=== PATIENT | female | born 1965 | race Caucasian/White ===

== ENCOUNTER → 2016-05-07 | Outpatient (CLI) | payer BC | END | disposition home or self-care (01) | LOC: LAB 15:34 | PROVIDERS: ATTEND Internal Medicine Gastroenterology | DX: K58.2 Mixed irritable bowel syndrome (principal) | CPT/HCPCS: 82784; 83516; 86255 ==

== ENCOUNTER → 2016-05-25 | Outpatient (CLI) | payer BC ==
[~2016-05-25] MED LIST: ASPI81TA27 PO; ESCI10TA53 PO; GABA300C8 PO; MELO-85 PO; PRO20T OR
[2016-05-25 12:57] LABS: Basophils # (auto) 0 uL; Basophils % (auto) 0.7 % (0.0-2.0); Eosinophils # (auto) 0.1 uL; Eosinophils % (auto) 2.2 % (0.0-7.0); Hematocrit 44.4 % (36.0-46.0); Hemoglobin 14.1 g/dL (12.2-16.2); Lymphocytes # (auto) 1.6 uL; Lymphocytes % (auto) 28.5 % (10.0-50.0); Mean Corpuscular Hemoglobin 29.2 pg (28.0-32.0); Mean Corpuscular Hgb Conc. 31.7 g/dL (32.0-36.0); Mean Platelet Volume 10.6 fL (7.4-10.4); Monocytes # (auto) 0.7 uL; Monocytes % (auto) 12.1 % (0.0-12.0); Neutrophils # (auto) 3.1 uL; Neutrophils % (auto) 56.5 % (37.0-80.0); Platelet Count (auto) 286 10^3/uL (140-450); Red Cell Distribution Width 15.6 % (11.6-16.0); White Blood Cell 5.5 10^3/uL (4.4-10.8)
[2016-05-25 13:05] LABS: Partial Thromboplastin Time 23.8 sec (22.64-33.71); Prothrombin Time 10.3 sec (9.37-12.3)
== END | disposition home or self-care (01) ==
LOC: LAB 09:38
PROVIDERS: ATTEND Internal Medicine Gastroenterology
DX: Z01.812 Encounter for preprocedural laboratory examination (principal)
CPT/HCPCS: 36415; 85025; 85610; 85730

== ENCOUNTER 2016-05-27 09:30 | Day surgery (SDC) | payer BC ==
[~2016-05-27] VITALS: Ht 167.6 cm; Wt 65.8 kg
[2016-05-27] MEDS ORDERED: SODIUM CHLORIDE LOCK 10 ML ONE (10:26)
[2016-05-27] MEDS ORDERED: diphenhdrAMINE HCL 50 MG/1 ML VL ONE (10:26)
[2016-05-27] MEDS: MIDAZOLAM HCL 5 MG/ML-1ML VIAL ONE ×2 (10:37→10:43)
[2016-05-27] MEDS: fentaNYL CITRATE 100 MCG/2 ML VL ONE ×2 (10:37→10:43)
[2016-05-27 11:25] VITALS: BP 119/65
== END 2016-05-27 11:36 | disposition home or self-care (01) ==
LOC: GI 09:30
PROVIDERS: ATTEND Internal Medicine Gastroenterology
DX: Z12.11 Encounter for screening for malignant neoplasm of colon (principal); K64.8 Other hemorrhoids; N80.9 Endometriosis, unspecified; Z90.710 Acquired absence of both cervix and uterus
CPT/HCPCS: 45378; J1200; J2250; J3010

== ENCOUNTER → 2016-06-09 | Outpatient (CLI) | payer BC ==
[2016-06-09 13:25] LABS: Basophils # (auto) 0 uL; Basophils % (auto) 0.7 % (0.0-2.0); Eosinophils # (auto) 0.1 uL; Eosinophils % (auto) 1.5 % (0.0-7.0); Hematocrit 42.8 % (36.0-46.0); Hemoglobin 14.3 g/dL (12.2-16.2); Mean Corpuscular Hgb Conc. 33.5 g/dL (32.0-36.0); Mean Corpuscular Volume 89.5 fL (80.0-100.0); Mean Platelet Volume 9.4 fL (7.4-10.4); Monocytes # (auto) 0.6 uL; Monocytes % (auto) 11.1 % (0.0-12.0); Neutrophils # (auto) 2.9 uL; Neutrophils % (auto) 51.7 % (37.0-80.0); Platelet Count (auto) 299 10^3/uL (140-450); Red Cell Distribution Width 14.9 % (11.6-16.0); White Blood Cell 5.7 10^3/uL (4.4-10.8)
[2016-06-09 14:10] LABS: BUN/Creatinine Ratio 14.2; Calcium 9.7 mg/dL (8.5-10.1); Potassium 4.1 mmol/L (3.5-5.1)
== END | disposition home or self-care (01) ==
LOC: LAB 12:47
DX: Z00.00 Encounter for general adult medical examination without abnormal findings (principal)
CPT/HCPCS: 36415; 80048; 84702; 85025

== ENCOUNTER → 2016-11-22 | Outpatient (CLI) | payer BC ==
[~2016-11-22] MED LIST changes: +GABA-497 PO; -GABA300C8 PO
[2016-11-22 12:36] LABS: Basophils # (auto) 0 uL; Basophils % (auto) 0.7 % (0.0-2.0); CONDITION Y; Eosinophils # (auto) 0.2 uL; Eosinophils % (auto) 3.1 % (0.0-7.0); Hematocrit 43.4 % (36.0-46.0); Hemoglobin 14.9 g/dL (12.2-16.2); Lymphocytes # (auto) 1.2 uL; Lymphocytes % (auto) 23.2 % (10.0-50.0); Mean Corpuscular Hemoglobin 31.2 pg (28.0-32.0); Mean Corpuscular Hgb Conc. 34.3 g/dL (32.0-36.0); Mean Corpuscular Volume 90.9 fL (80.0-100.0); Mean Platelet Volume 9.4 fL (7.4-10.4); Monocytes # (auto) 0.5 uL; Neutrophils # (auto) 3.1 uL; Platelet Count (auto) 329 10^3/uL (140-450); Red Cell Distribution Width 14.8 % (11.6-16.0)
[2016-11-22 13:07] LABS: Albumin 4.3 g/dL (3.4-5.0); BUN/Creatinine Ratio 18.3; Bilirubin, Total 0.4 mg/dL (0.2-1.0); Calcium 9.1 mg/dL (8.5-10.1); Potassium 4.4 mmol/L (3.5-5.1); Total Protein 8.4 g/dL (6.4-8.2)
== END | disposition home or self-care (01) ==
LOC: LAB 12:08
PROVIDERS: ATTEND Internal Medicine
DX: Z00.00 Encounter for general adult medical examination without abnormal findings (principal); E78.5 Hyperlipidemia, unspecified; Z12.11 Encounter for screening for malignant neoplasm of colon
CPT/HCPCS: 36415; 80053; 80061; 82306; 84443; 85025

== ENCOUNTER → 2016-12-08 | Outpatient (CLI) | payer BC | END | disposition home or self-care (01) | LOC: LAB 10:19 | PROVIDERS: ATTEND Internal Medicine | DX: Z12.6 Encounter for screening for malignant neoplasm of bladder (principal); E78.5 Hyperlipidemia, unspecified | CPT/HCPCS: 82270 ==

== ENCOUNTER 2016-12-23 19:21 | Emergency (ER) | payer BC ==
[~2016-12-23] VITALS: Ht 167.6 cm; Wt 66.7 kg
[2016-12-23] MEDS ORDERED: cloNIDine HCL 0.1 MG TAB PO ONE (19:45)
[2016-12-23] MEDS ORDERED: SODIUM CHLORIDE 0.9% 1,000 ML IV ONE (19:45)
[2016-12-23] MEDS ORDERED: ONDANSETRON HCL 4 MG/2 ML VIAL IV ONE ×2 (19:45→23:15)
[2016-12-23 20:11] LABS: Basophils # (auto) 0.1 uL; Basophils % (auto) 1.2 % (0.0-2.0); Eosinophils # (auto) 0 uL; Eosinophils % (auto) 0.5 % (0.0-7.0); Hemoglobin 14.3 g/dL (12.2-16.2); Lymphocytes # (auto) 1.5 uL; Lymphocytes % (auto) 19.6 % (10.0-50.0); Mean Corpuscular Hemoglobin 31.1 pg (28.0-32.0); Mean Corpuscular Volume 91.5 fL (80.0-100.0); Mean Platelet Volume 8.8 fL (7.4-10.4); Monocytes # (auto) 0.6 uL; Monocytes % (auto) 7.6 % (0.0-12.0); Neutrophils # (auto) 5.3 uL; Neutrophils % (auto) 71.1 % (37.0-80.0); Platelet Count (auto) 278 10^3/uL (140-450); Red Cell Distribution Width 15.2 % (11.6-16.0); White Blood Cell 7.5 10^3/uL (4.4-10.8)
[2016-12-23 20:20] LABS: Albumin 4.3 g/dL (3.4-5.0); BUN/Creatinine Ratio 11.9; Potassium 3.7 mmol/L (3.5-5.1)
[2016-12-23 20:22] LABS: Bilirubin, Total 0.4 mg/dL (0.2-1.0); Total Protein 7.7 g/dL (6.4-8.2)
[2016-12-23] MEDS ORDERED: MORPHINE SULFATE 4 MG/ML SYRG IV ONE (20:30)
[2016-12-23] MEDS ORDERED: HYDROmorphone HCL 2 MG/ML VL IV ONE (21:15)
[2016-12-23] MEDS ORDERED: PROMETHAZINE HCL 25 MG/ML 1ML IV ONE (21:15)
[2016-12-23 21:21] LABS: B-Type Natriuretic Peptide 11.11 pg/mL (0-100)
[2016-12-23 21:30] LABS: Temperature: 22.3 C (20.0-25.0)
[2016-12-23] MEDS ORDERED: FAMOTIDINE (10MG/ML) 2ML VL IV ONE (23:15)
[2016-12-23] MEDS ORDERED: LORazepam 2MG/ML-1ML VIAL IV ONE (23:15)
[2016-12-23] MEDS ORDERED: LORazepam 0.5 MG TAB PO ONE (23:15)
[2016-12-24 00:57] VITALS: BP 151/95
== END 2016-12-24 01:19 | disposition home or self-care (01) ==
LOC: ER 19:21
DX: R51 Headache (principal); R11.2 Nausea with vomiting, unspecified; J02.9 Acute pharyngitis, unspecified; I10 Essential (primary) hypertension; R42 Dizziness and giddiness
CPT/HCPCS: 36415; 70450; 80053; 80320; 83735; 83880; 84484; 85025; 93005; 94761; 96361; 96374; 96375; 96376; 99285; J1170; J2060; J2270; J2405; J2550

== ENCOUNTER 2016-12-25 10:02 | Emergency (ER) | payer BC ==
[~2016-12-25] VITALS: Ht 167.6 cm; Wt 66.7 kg
[2016-12-25] MEDS ORDERED: LORazepam 2MG/ML-1ML VIAL ONE (10:17)
[2016-12-25] MEDS ORDERED: LABETALOL HCL 5 MG/ML 4ML SYRINGE IV ONE (10:17)
[2016-12-25] MEDS ORDERED: LABETALOL HCL 5 MG/ML ML 20ML VIAL IV ONE (10:30)
[2016-12-25] MEDS ORDERED: LORazepam 2MG/ML-1ML VIAL IV ONE ×2 (10:30→12:00)
[2016-12-25] MEDS ORDERED: PROMETHAZINE HCL 25 MG/ML 1ML IV ONE (10:45)
[2016-12-25] MEDS ORDERED: SODIUM CHLORIDE 0.9% 1,000 ML IV ONE (11:04)
[2016-12-25] MEDS ORDERED: HYDROmorphone HCL 2 MG/ML VL IV ONE (11:15)
[2016-12-25 11:22] LABS: Basophils # (auto) 0.1 uL; Basophils % (auto) 0.7 % (0.0-2.0); Eosinophils # (auto) 0.1 uL; Eosinophils % (auto) 1.9 % (0.0-7.0); Hematocrit 43.7 % (36.0-46.0); Hemoglobin 14.5 g/dL (12.2-16.2); Lymphocytes # (auto) 1.5 uL; Lymphocytes % (auto) 20.2 % (10.0-50.0); Mean Corpuscular Hemoglobin 30.5 pg (28.0-32.0); Mean Corpuscular Hgb Conc. 33.2 g/dL (32.0-36.0); Mean Corpuscular Volume 92.1 fL (80.0-100.0); Mean Platelet Volume 9.1 fL (7.4-10.4); Monocytes # (auto) 0.8 uL; Monocytes % (auto) 11.2 % (0.0-12.0); Neutrophils # (auto) 4.8 uL; Nucleated Red Blood Cells % 0.1 %; Platelet Count (auto) 270 10^3/uL (140-450); Red Cell Distribution Width 15.4 % (11.6-16.0); White Blood Cell 7.3 10^3/uL (4.4-10.8)
[2016-12-25 11:35] LABS: Alkaline Phosphatase 49 U/L (45-117); Anion Gap 8 (5-15); Aspartate Aminotransferase 43 U/L (15-37); BUN/Creatinine Ratio 16.5; Bilirubin, Total 0.4 mg/dL (0.2-1.0); Blood Urea Nitrogen 15 mg/dL (7-18); Calcium 8.8 mg/dL (8.5-10.1); Carbon Dioxide 28 mmol/L (21-32); Chloride 99 mmol/L (98-107); GFR African American 84 mL/min; GFR Non-African American 69 mL/min; Glucose 91 mg/dL (74-106); Potassium 4.4 mmol/L (3.5-5.1); Sodium 135 mmol/L (136-145)
[2016-12-25] MEDS ORDERED: hydrALAZINE HCL 20 MG/ML VL IV ONE (11:45)
[2016-12-25] MEDS ORDERED: DIAZEPAM 5 MG/ML 2ML SYRG IV ONE (11:45)
[2016-12-25 12:30] VITALS: BP 142/95
[2016-12-25] MEDS ORDERED: IBUPROFEN 800 MG TAB PO ONE ×2 (12:56→13:00)
== END 2016-12-25 13:08 | disposition home or self-care (01) ==
LOC: ER 10:02
DX: I10 Essential (primary) hypertension (principal); E78.5 Hyperlipidemia, unspecified; Z88.6 Allergy status to analgesic agent; Z88.8 Allergy status to other drugs, medicaments and biological substances
CPT/HCPCS: 36415; 70450; 80053; 84484; 85025; 94761; 96374; 96375; 96376; 99291; J0360; J1170; J2060; J2550; J3490

== ENCOUNTER 2016-12-27 11:34 | Emergency (ER) | payer BC ==
[~2016-12-27] VITALS: Ht 167.6 cm; Wt 66.7 kg
[2016-12-27] MEDS ORDERED: diphenhdrAMINE HCL 25 MG CAP PO ONE (13:15)
[2016-12-27] MEDS ORDERED: KETOROLAC TROMETH 60MG/2ML VIAL IM ONE (13:15)
[2016-12-27] MEDS ORDERED: PROMETHAZINE HCL 25 MG/ML 1ML IM ONE (13:15)
[2016-12-27 14:51] VITALS: BP 137/88
== END 2016-12-27 14:59 | disposition home or self-care (01) ==
LOC: ER 11:34
DX: G43.909 Migraine, unspecified, not intractable, without status migrainosus (principal); I10 Essential (primary) hypertension; E78.5 Hyperlipidemia, unspecified; G62.9 Polyneuropathy, unspecified; F17.210 Nicotine dependence, cigarettes, uncomplicated; Z88.8 Allergy status to other drugs, medicaments and biological substances; Z88.6 Allergy status to analgesic agent; Z79.899 Other long term (current) drug therapy
CPT/HCPCS: 96372; 99284; J1885; J2550

== ENCOUNTER → 2017-12-20 | Outpatient (CLI) | payer BC ==
[~2017-12-20] MED LIST changes: -GABA-497 PO; +GABA300C10 PO; -MELO-85 PO; +MELO1TAB73 PO
[2017-12-20 09:37] LABS: Basophils # (auto) 0 uL; Basophils % (auto) 0.7 % (0.0-2.0); Eosinophils # (auto) 0.1 uL; Lymphocytes # (auto) 1.4 uL; Lymphocytes % (auto) 22.9 % (10.0-50.0); Mean Corpuscular Hemoglobin 30.9 pg (28.0-32.0); Mean Corpuscular Hgb Conc. 33.5 g/dL (32.0-36.0); Mean Corpuscular Volume 92.3 fL (80.0-100.0); Monocytes # (auto) 0.6 uL; Monocytes % (auto) 10.2 % (0.0-12.0); Neutrophils # (auto) 3.9 uL; Neutrophils % (auto) 64.2 % (37.0-80.0); Platelet Count (auto) 269 10^3/uL (140-450); Red Blood Cells 4.55 10^6/uL (4.0-5.20); Red Cell Distribution Width 14.2 % (11.8-14.3)
[2017-12-20 10:49] LABS: Albumin 4.4 g/dL (3.4-5.0); BUN/Creatinine Ratio 20.8; Bilirubin, Total 0.3 mg/dL (0.2-1.0); Calcium 9.2 mg/dL (8.5-10.1); Potassium 4.6 mmol/L (3.5-5.1)
== END | disposition home or self-care (01) ==
LOC: LAB 09:23
PROVIDERS: ATTEND Internal Medicine
DX: Z12.11 Encounter for screening for malignant neoplasm of colon (principal); E78.5 Hyperlipidemia, unspecified; I10 Essential (primary) hypertension; Z90.710 Acquired absence of both cervix and uterus; Z79.82 Long term (current) use of aspirin
CPT/HCPCS: 36415; 80053; 80061; 82306; 84443; 85025

== ENCOUNTER 2018-03-12 15:28 | Emergency (ER) | payer BC ==
[2018-03-12 17:04] VITALS: BP 94/62
== END 2018-03-12 17:06 | disposition home or self-care (01) ==
LOC: ER 15:28
DX: S39.012A Strain of muscle, fascia and tendon of lower back, initial encounter (principal); E78.5 Hyperlipidemia, unspecified; I10 Essential (primary) hypertension; F17.210 Nicotine dependence, cigarettes, uncomplicated; Z88.8 Allergy status to other drugs, medicaments and biological substances; X58.XXXA Exposure to other specified factors, initial encounter; Y93.89 Activity, other specified; Y99.8 Other external cause status; Y92.89 Other specified places as the place of occurrence of the external cause
CPT/HCPCS: 72100

== ENCOUNTER 2018-05-31 08:01 | Emergency (ER) | payer BC ==
[~2018-05-31] VITALS: Ht 167.6 cm; Wt 67.6 kg
[2018-05-31] MEDS ORDERED: KETOROLAC TROMETH 60MG/2ML VIAL IM ONE (09:45)
[2018-05-31] MEDS ORDERED: methylPREDNISolone SOD SUCC 125 MG/2 ML VL IM ONE (09:45)
[2018-05-31 16:23] VITALS: BP 122/78
== END 2018-05-31 16:38 | disposition home or self-care (01) ==
LOC: ER 08:02
DX: M77.9 Enthesopathy, unspecified (principal); M51.17 Intervertebral disc disorders with radiculopathy, lumbosacral region; E78.5 Hyperlipidemia, unspecified; I10 Essential (primary) hypertension; M79.652 Pain in left thigh; F17.210 Nicotine dependence, cigarettes, uncomplicated; Z88.6 Allergy status to analgesic agent; Z88.8 Allergy status to other drugs, medicaments and biological substances
CPT/HCPCS: 73110; 93971; 96372; 99284; J1885; J2930

== ENCOUNTER 2018-06-19 11:14 | Emergency (ER) | payer BC ==
[~2018-06-19] VITALS: Ht 167.6 cm; Wt 67.1 kg
[2018-06-19 13:22] VITALS: BP 127/74
[2018-06-19] MEDS ORDERED: DEXAMETHASONE SOD PHOS 10MG/1ML VIAL INJ IM ONE (13:30)
[2018-06-19] MEDS ORDERED: KETOROLAC TROMETH 60MG/2ML VIAL IM ONE (13:30)
== END 2018-06-19 13:26 | disposition home or self-care (01) ==
LOC: ER 11:15
DX: M48.02 Spinal stenosis, cervical region (principal); E78.5 Hyperlipidemia, unspecified; I10 Essential (primary) hypertension; F17.210 Nicotine dependence, cigarettes, uncomplicated; Z88.6 Allergy status to analgesic agent; Z88.8 Allergy status to other drugs, medicaments and biological substances; Z79.82 Long term (current) use of aspirin; Z79.899 Other long term (current) drug therapy
CPT/HCPCS: 72125; 96372; 99284; J1100; J1885

== ENCOUNTER 2018-07-10 13:44 | Emergency (ER) | payer BC ==
[~2018-07-10] VITALS: Ht 167.6 cm; Wt 64.4 kg
[2018-07-10 13:59] VITALS: BP 165/92
[2018-07-10] MEDS ORDERED: KETOROLAC TROMETH 60MG/2ML VIAL IM ONE (15:00)
== END 2018-07-10 15:36 | disposition home or self-care (01) ==
LOC: ER 13:45
DX: S92.341A Displaced fracture of fourth metatarsal bone, right foot, initial encounter for closed fracture (principal); I10 Essential (primary) hypertension; E78.5 Hyperlipidemia, unspecified; F17.210 Nicotine dependence, cigarettes, uncomplicated; Z88.6 Allergy status to analgesic agent; Z88.8 Allergy status to other drugs, medicaments and biological substances; Z90.710 Acquired absence of both cervix and uterus; Z88.1 Allergy status to other antibiotic agents
CPT/HCPCS: 73630; 96372; 99283; A6257; J1885; L3260

== ENCOUNTER 2018-07-26 09:26 | Day surgery (SDC) | payer BC ==
[~2018-07-26] VITALS: Ht 167.6 cm; Wt 64.4 kg
[2018-07-26] MEDS ORDERED: ceFAZolin 1GM/50ML 50 ML IV ONE (09:58)
[2018-07-26 10:37] LABS: Basophils # (auto) 0.1 uL; Eosinophils # (auto) 0.1 uL; Hematocrit 41.4 % (36.0-46.0); Hemoglobin 13.8 g/dL (12.2-16.2); Lymphocytes # (auto) 1.2 uL; Lymphocytes % (auto) 22.6 % (10.0-50.0); Mean Corpuscular Hgb Conc. 33.3 g/dL (32.0-36.0); Mean Corpuscular Volume 93.1 fL (80.0-100.0); Monocytes # (auto) 0.6 uL; Monocytes % (auto) 11.7 % (0.0-12.0); Neutrophils # (auto) 3.3 uL; Neutrophils % (auto) 62.7 % (37.0-80.0); Nucleated Red Blood Cells % 0.1 %; Platelet Count (auto) 348 10^3/uL (140-450); Red Blood Cells 4.44 10^6/uL (4.0-5.20); Red Cell Distribution Width 14.5 % (11.8-14.3); White Blood Cell 5.3 10^3/uL (4.4-10.8)
[2018-07-26 10:48] LABS: BUN/Creatinine Ratio 20.2; Calcium 9.1 mg/dL (8.5-10.1); Potassium 4.5 mmol/L (3.5-5.1)
[2018-07-26] MEDS ORDERED: fentaNYL CITRATE 100 MCG/2 ML VL ONE (11:11)
[2018-07-26] MEDS ORDERED: MIDAZOLAM HCL 1MG/1ML-2 ML VIAL ONE (11:11)
[2018-07-26] MEDS ORDERED: MEPERIDINE HCL (50 MG/ML) 1 ML VIAL ONE (11:11)
[2018-07-26 11:23] LABS: INR 0.94 (0.9-1.15); Partial Thromboplastin Time 23.4 sec (23.78-33.04); Prothrombin Time 10.1 sec (9.27-12.13)
[2018-07-26] MEDS ORDERED: BUPIVACAINE 0.75% INJ 10ML MPV SDV IJ ONE (12:07)
[2018-07-26] MEDS ORDERED: MIDAZOLAM HCL 1MG/1ML-2 ML VIAL IV PRN ×2 (12:45→13:45)
[2018-07-26] MEDS ORDERED: KETOROLAC TROMETH 30 MG/ML 1ML VIAL IV ONE ×2 (12:45→13:45)
[2018-07-26] MEDS ORDERED: HYDROmorphone HCL 2 MG/ML VL IV PRN ×2 (12:45→13:45)
[2018-07-26] MEDS ORDERED: ONDANSETRON HCL 4 MG/2 ML VIAL IV ONE ×2 (12:45→13:45)
[2018-07-26] MEDS ORDERED: LABETALOL HCL 5 MG/ML 4ML SYRINGE IV PRN ×2 (12:45→13:45)
[2018-07-26] MEDS ORDERED: ePHEDrine SULFATE 50 MG/ML AMP IV PRN ×2 (12:45→13:45)
[2018-07-26] MEDS ORDERED: PROPOFOL 10 MG/ML 20 ML IV ONE (12:50)
[2018-07-26] MEDS ORDERED: MORPHINE SULFATE 4 MG/ML SYR/VIAL IV PRN (13:45)
[2018-07-26] MEDS ORDERED: hydrALAZINE HCL 20 MG/ML VL IV PRN (13:45)
[2018-07-26] MEDS ORDERED: MORPHINE SULFATE 4 MG/ML SYR/VIAL IV ONE ×2 (14:00)
[2018-07-26 14:32] VITALS: BP 149/71
== END 2018-07-26 14:37 | disposition home or self-care (01) ==
LOC: SUR 09:26
PROVIDERS: ATTEND Podiatrist Foot & Ankle Surgery
DX: S92.341A Displaced fracture of fourth metatarsal bone, right foot, initial encounter for closed fracture (principal); I10 Essential (primary) hypertension; E78.00 Pure hypercholesterolemia, unspecified; I34.1 Nonrheumatic mitral (valve) prolapse; M19.90 Unspecified osteoarthritis, unspecified site; Z79.899 Other long term (current) drug therapy; Z90.710 Acquired absence of both cervix and uterus; Z88.8 Allergy status to other drugs, medicaments and biological substances; Z90.721 Acquired absence of ovaries, unilateral; X58.XXXA Exposure to other specified factors, initial encounter; Y93.89 Activity, other specified; Y92.89 Other specified places as the place of occurrence of the external cause; Y99.8 Other external cause status
CPT/HCPCS: 28485; 36415; 71045; 73620; 80048; 85025; 85610; 85730; C1713; C1776; J0690; J2175; J2250; J2704; J3010; J3490; L3260

== ENCOUNTER 2019-12-10 12:49 | Emergency (ER) | payer BC, OTHER ==
[~2019-12-10] VITALS: Ht 167.6 cm; Wt 68.9 kg
[~2019-12-10 12:49] MED LIST changes: +ASPI-543 PO; -ASPI81TA27 PO
[2019-12-10] MEDS ORDERED: ONDANSETRON ODT 4 MG TAB PO ONE (13:00)
[2019-12-10 13:09] VITALS: BP 145/95
[2019-12-10] MEDS ORDERED: HYDROmorphone HCL 2 MG/ML VL IM ONE (13:45)
[2019-12-10] MEDS ORDERED: ONDANSETRON HCL 4 MG/2 ML VIAL IM ONE (13:45)
== END 2019-12-10 15:15 | disposition home or self-care (01) ==
LOC: ER 12:49 → EEVIPCON 12:49 → ER 15:15
DX: G43.909 Migraine, unspecified, not intractable, without status migrainosus (principal); F41.9 Anxiety disorder, unspecified; E78.5 Hyperlipidemia, unspecified; I10 Essential (primary) hypertension; F17.210 Nicotine dependence, cigarettes, uncomplicated; Z79.82 Long term (current) use of aspirin; Z79.899 Other long term (current) drug therapy; Z88.6 Allergy status to analgesic agent; Z88.8 Allergy status to other drugs, medicaments and biological substances
CPT/HCPCS: 70450; 96372; 99284; J1170; J2405; Q0162

== ENCOUNTER → 2019-12-12 | Outpatient (CLI) | payer OTHER | END | disposition home or self-care (01) | LOC: LAB 13:47 | PROVIDERS: ATTEND Nurse Practitioner Family | DX: Z20.828 Contact with and (suspected) exposure to other viral communicable diseases (principal) | CPT/HCPCS: C9803; U0003 ==

== ENCOUNTER 2019-12-13 20:57 | Emergency (ER) | payer BC, OTHER ==
[~2019-12-13] VITALS: Ht 167.6 cm; Wt 68.0 kg
[2019-12-13] MEDS ORDERED: ONDANSETRON HCL 4 MG/2 ML VIAL ONE (21:39)
[2019-12-13] MEDS ORDERED: MORPHINE SULFATE 4 MG/ML SYR/VIAL ONE (21:39)
[2019-12-13] MEDS ORDERED: ONDANSETRON HCL 4 MG/2 ML VIAL IV ONE (21:45)
[2019-12-13] MEDS ORDERED: MORPHINE SULFATE 4 MG/ML SYR/VIAL IV ONE (21:45)
[2019-12-13] MEDS ORDERED: SODIUM CHLORIDE 0.9% 1,000 ML IV ONE (21:45)
[2019-12-13] MEDS ORDERED: HYDROmorphone HCL 2 MG/ML VL ONE (22:16)
[2019-12-14] MEDS ORDERED: fentaNYL CITRATE 100 MCG/2 ML VL IV ONE (00:30)
[2019-12-14] MEDS ORDERED: MIDAZOLAM HCL 5 MG/ML-1ML VIAL IV ONE (00:30)
[2019-12-14 01:00] VITALS: BP 110/67
[2019-12-14] MEDS ORDERED: FLUMAZENIL 0.1 MG/ML INJ 10ML MDV IV ONE (02:10)
[2019-12-25] MEDS ORDERED: IRBE150T26 PO (13:36)
[2019-12-25] MEDS ORDERED: HYDR25TA4 PO (13:36)
[2019-12-25] MEDS ORDERED: ROPI0.254 PO (13:36)
[2019-12-25] MEDS ORDERED: PROP80CA40 PO (13:36)
[2019-12-25] MEDS ORDERED: ATOR20TA50 PO (13:36)
== END 2019-12-14 03:38 | disposition home or self-care (01) ==
LOC: ER 20:57 → EEVIPCON 20:57 → ER 12-14 03:38
DX: S52.501A Unspecified fracture of the lower end of right radius, initial encounter for closed fracture (principal); E78.5 Hyperlipidemia, unspecified; I10 Essential (primary) hypertension; Z88.6 Allergy status to analgesic agent; Z88.8 Allergy status to other drugs, medicaments and biological substances; W18.30XA Fall on same level, unspecified, initial encounter; Y93.89 Activity, other specified; Y92.89 Other specified places as the place of occurrence of the external cause; Y99.8 Other external cause status
CPT/HCPCS: 25605; 73090; 73110; 96361; 96374; 96375; 99152; 99153; 99285; J1170; J2250; J2270; J2405; J3010; J7030

== ENCOUNTER 2019-12-28 06:12 | Day surgery (SDC) | payer BC ==
[2019-12-25 12:14] LABS: Basophils # (auto) 0.1 10 ^3/uL (0-0.2); Basophils % (auto) 1.2 % (0.0-2.0); Eosinophils # (auto) 0.1 10 ^3/uL (0-0.8); Eosinophils % (auto) 1.3 % (0.0-7.0); Hematocrit 36.8 % (36.0-46.0); Hemoglobin 12.4 g/dL (12.2-16.2); Lymphocytes # (auto) 0.8 10 ^3/uL (0.4-5.4); Lymphocytes % (auto) 15.7 % (10.0-50.0); Mean Corpuscular Hemoglobin 31.8 pg (28.0-32.0); Mean Corpuscular Hgb Conc. 33.7 g/dL (32.0-36.0); Mean Corpuscular Volume 94.5 fL (80.0-100.0); Monocytes # (auto) 0.7 10 ^3/uL (0-1.3); Monocytes % (auto) 14.5 % (0.0-12.0); Neutrophils # (auto) 3.2 10 ^3/uL (1.6-8.6); Neutrophils % (auto) 67.3 % (37.0-80.0); Platelet Count (auto) 281 10^3/uL (140-450); Red Blood Cells 3.89 10^6/uL (4.0-5.20); Red Cell Distribution Width 14.3 % (11.8-14.3); White Blood Cell 4.8 10^3/uL (4.4-10.8)
[2019-12-25 12:18] LABS: Urine Bacteria NONE SEEN /hpf (None Seen); Urine Blood Negative /uL (Negative); Urine Hyaline Cast FEW /lpf (0 - 2); Urine Mucus FEW (None Seen); Urine Specific Gravity 1.016 (1.001-1.035); Urine WBC 1 /hpf (0 - 5)
[2019-12-25 12:32] LABS: INR 0.96 (0.9-1.15); Partial Thromboplastin Time 24.4 sec (23.0-31.2)
[2019-12-25 12:33] LABS: Albumin 3.9 g/dL (3.4-5.0); Calcium 9.2 mg/dL (8.5-10.1); Potassium 3.3 mmol/L (3.5-5.1)
[2019-12-25 12:36] LABS: BUN/Creatinine Ratio 7.9; Bilirubin, Total 0.5 mg/dL (0.2-1.0); Total Protein 7.5 g/dL (6.4-8.2)
[~2019-12-28] VITALS: Ht 167.6 cm; Wt 70.3 kg
[~2019-12-28 06:12] MED LIST changes: -ASPI-543 PO; +ATOR20TA50 PO; -ESCI10TA53 PO; -GABA300C10 PO; +HYDR25TA4 PO; +IRBE150T26 PO; -PRO20T OR; +PROP80CA40 PO; +ROPI0.254 PO
[2019-12-28] MEDS ORDERED: ceFAZolin 1GM/50ML 50 ML IV ONE (06:39)
[2019-12-28] MEDS ORDERED: LIDOCAINE 1% (LOCAL ANESTH.) PF 5ml SDV ONE (06:43)
[2019-12-28] MEDS ORDERED: SUCCINYLCHOLINE CHLORIDE 20 MG/ML 10ML VIAL IV ONE (06:44)
[2019-12-28] MEDS ORDERED: BUPIVACAINE W/ EPINEPH 0.25% INJ 50ML MDV ONE (06:48)
[2019-12-28] MEDS ORDERED: LIDOCAINE W/ EPINEPHRINE 1% 20ML VIAL ONE (06:48)
[2019-12-28] MEDS ORDERED: LIDOCAINE 1% HCL (LOCAL ANESTH.) INJ 20ML MDV ONE (06:48)
[2019-12-28] MEDS ORDERED: BUPIVACAINE 0.25% INJ 50ML VIAL ONE (06:49)
[2019-12-28] MEDS ORDERED: MIDAZOLAM HCL 1MG/1ML-2 ML VIAL ONE (06:59)
[2019-12-28] MEDS ORDERED: NALOXONE HCL 0.4 MG/ML VIAL IV PRN (07:00)
[2019-12-28] MEDS ORDERED: ONDANSETRON HCL 4 MG/2 ML VIAL IV PRN (07:00)
[2019-12-28] MEDS ORDERED: HYDROmorphone HCL 2 MG/ML VL IV PRN ×2 (07:00)
[2019-12-28] MEDS ORDERED: PROPOFOL 10 MG/ML 20 ML IV ONE (07:02)
[2019-12-28] MEDS ORDERED: ROCURONIUM 10MG/ML 10ML VIAL IV ONE (07:02)
[2019-12-28] MEDS ORDERED: METOCLOPRAMIDE HCL 5MG/ml INJ 2ml VIAL ONE (07:03)
[2019-12-28] MEDS ORDERED: fentaNYL CITRATE 100 MCG/2 ML VL ONE (07:13)
[2019-12-28 09:10] VITALS: BP 161/97
== END 2019-12-28 09:40 | disposition home or self-care (01) ==
LOC: SUR 06:12
PROVIDERS: ATTEND Orthopaedic Surgery Adult Reconstructive Orthopaedic Surgery
DX: S52.591A Other fractures of lower end of right radius, initial encounter for closed fracture (principal); X58.XXXA Exposure to other specified factors, initial encounter; Y93.89 Activity, other specified; Y92.89 Other specified places as the place of occurrence of the external cause; Y99.8 Other external cause status; I10 Essential (primary) hypertension; M19.90 Unspecified osteoarthritis, unspecified site; F41.9 Anxiety disorder, unspecified; Z90.710 Acquired absence of both cervix and uterus; Z88.6 Allergy status to analgesic agent; Z88.8 Allergy status to other drugs, medicaments and biological substances; Z90.721 Acquired absence of ovaries, unilateral; Z20.828 Contact with and (suspected) exposure to other viral communicable diseases
CPT/HCPCS: 25608; 36415; 73100; 80053; 81001; 85025; 85610; 85730; 87426; C1713; J0330; J0690; J1170; J2250; J2405; J2704; J2765; J3010; J3490; 76001; J2001

== ENCOUNTER 2020-01-01 06:22 | Emergency (ER) | payer BC ==
[~2020-01-01] VITALS: Ht 167.6 cm; Wt 70.3 kg
[2020-01-01] MEDS ORDERED: HYDROmorphone HCL 2 MG/ML VL IV ONE (07:45)
[2020-01-01] MEDS ORDERED: ONDANSETRON HCL 4 MG/2 ML VIAL IV ONE (07:45)
[2020-01-01] MEDS ORDERED: LOSARTAN POTASSIUM 50 MG TAB PO ONE (08:45)
[2020-01-01] MEDS ORDERED: PROPRANOLOL HCL 20 MG TAB PO ONE (08:45)
[2020-01-01] MEDS ORDERED: HCTZ 25 MG TAB PO ONE (08:45)
[2020-01-01 10:08] VITALS: BP 149/87
== END 2020-01-01 10:17 | disposition home or self-care (01) ==
LOC: ER 06:22 → EEVIPCON 06:22 → ER 10:17
DX: G89.18 Other acute postprocedural pain (principal); I10 Essential (primary) hypertension; E78.5 Hyperlipidemia, unspecified; Z88.5 Allergy status to narcotic agent; Z88.8 Allergy status to other drugs, medicaments and biological substances; Z79.899 Other long term (current) drug therapy; Z79.82 Long term (current) use of aspirin; Z90.710 Acquired absence of both cervix and uterus
CPT/HCPCS: 71045; 93971; 96374; 96375; 99285; J1170; J2405

== ENCOUNTER 2020-06-04 08:49 | Emergency (ER) | payer BC, OTHER ==
[~2020-06-04] VITALS: Ht 167.6 cm; Wt 67.1 kg
[2020-06-04 09:01] VITALS: BP 157/94
[2020-06-04] MEDS ORDERED: KETOROLAC TROMETH 60MG/2ML VIAL IM ONE (09:30)
[2020-06-04] MEDS ORDERED: methylPREDNISolone SOD SUCC 125 MG/2 ML VL IM ONE (09:30)
== END 2020-06-04 12:21 | disposition home or self-care (01) ==
LOC: EEVIPCON 08:49 → ER 08:49
DX: M50.30 Other cervical disc degeneration, unspecified cervical region (principal); M19.90 Unspecified osteoarthritis, unspecified site; I10 Essential (primary) hypertension; E78.5 Hyperlipidemia, unspecified; Z90.710 Acquired absence of both cervix and uterus; Z79.899 Other long term (current) drug therapy; Z88.6 Allergy status to analgesic agent
CPT/HCPCS: 71046; 72125; 73630; 96372; 99284; J1885; J2930

== ENCOUNTER → 2020-06-18 | Outpatient (CLI) | payer BC ==
[2020-06-18 13:47] LABS: Basophils # (auto) 0 10 ^3/uL (0-0.2); Basophils % (auto) 0.1 % (0.0-2.0); Eosinophils # (auto) 0 10 ^3/uL (0-0.8); Hematocrit 38.5 % (36.0-46.0); Hemoglobin 13.1 g/dL (12.2-16.2); Lymphocytes # (auto) 1.1 10 ^3/uL (0.4-5.4); Lymphocytes % (auto) 10.3 % (10.0-50.0); Mean Corpuscular Hemoglobin 31.3 pg (28.0-32.0); Monocytes # (auto) 0.3 10 ^3/uL (0-1.3); Monocytes % (auto) 3.1 % (0.0-12.0); Neutrophils # (auto) 9.4 10 ^3/uL (1.6-8.6); Neutrophils % (auto) 86.5 % (37.0-80.0); Platelet Count (auto) 376 10^3/uL (140-450); Red Blood Cells 4.18 10^6/uL (4.0-5.20); Red Cell Distribution Width 14.4 % (11.8-14.3); White Blood Cell 10.8 10^3/uL (4.4-10.8)
[2020-06-18 14:36] LABS: Albumin 4.2 g/dL (3.4-5.0); BUN/Creatinine Ratio 15.7; Calcium 9.8 mg/dL (8.5-10.1); Potassium 4.1 mmol/L (3.5-5.1)
[2020-06-18 14:41] LABS: Bilirubin, Total 0.3 mg/dL (0.2-1.0); Total Protein 8.2 g/dL (6.4-8.2)
== END | disposition home or self-care (01) ==
LOC: LAB 13:34
PROVIDERS: ATTEND Internal Medicine
DX: Z00.00 Encounter for general adult medical examination without abnormal findings (principal); I10 Essential (primary) hypertension; E78.5 Hyperlipidemia, unspecified; E55.9 Vitamin D deficiency, unspecified; Z12.11 Encounter for screening for malignant neoplasm of colon
CPT/HCPCS: 36415; 80053; 80061; 82306; 84443; 85025

== ENCOUNTER → 2020-06-25 | Outpatient (CLI) | payer BC | END | disposition home or self-care (01) | LOC: LAB 13:00 | PROVIDERS: ATTEND Internal Medicine | DX: Z12.11 Encounter for screening for malignant neoplasm of colon (principal); Z00.00 Encounter for general adult medical examination without abnormal findings; I10 Essential (primary) hypertension; E78.5 Hyperlipidemia, unspecified; E55.9 Vitamin D deficiency, unspecified | CPT/HCPCS: 82274 ==

== ENCOUNTER → 2020-08-06 | Day surgery (SDC) | payer BC, OTHER ==
[2020-08-01 10:00] LABS: Basophils # (auto) 0 10 ^3/uL (0-0.2); Basophils % (auto) 0.8 % (0.0-2.0); Eosinophils # (auto) 0.2 10 ^3/uL (0-0.8); Eosinophils % (auto) 3.9 % (0.0-7.0); Hematocrit 40.4 % (36.0-46.0); Hemoglobin 13.8 g/dL (12.2-16.2); Lymphocytes # (auto) 1.1 10 ^3/uL (0.4-5.4); Lymphocytes % (auto) 17.2 % (10.0-50.0); Mean Corpuscular Hemoglobin 31.4 pg (28.0-32.0); Mean Corpuscular Volume 92.4 fL (80.0-100.0); Monocytes # (auto) 0.7 10 ^3/uL (0-1.3); Monocytes % (auto) 11.8 % (0.0-12.0); Neutrophils # (auto) 4.2 10 ^3/uL (1.6-8.6); Neutrophils % (auto) 66.3 % (37.0-80.0); Platelet Count (auto) 238 10^3/uL (140-450); Red Blood Cells 4.38 10^6/uL (4.0-5.20); Red Cell Distribution Width 13.8 % (11.8-14.3); White Blood Cell 6.3 10^3/uL (4.4-10.8)
[2020-08-01 10:22] LABS: INR 0.92 (0.9-1.15); Partial Thromboplastin Time 23.1 sec (23.0-31.2)
[2020-08-01 10:29] LABS: Albumin 3.7 g/dL (3.4-5.0); Calcium 9.2 mg/dL (8.5-10.1); Potassium 4.1 mmol/L (3.5-5.1)
[2020-08-01 10:32] LABS: BUN/Creatinine Ratio 9.8; Bilirubin, Total 0.3 mg/dL (0.2-1.0)
[2020-08-01 10:36] LABS: Urine Bacteria NONE SEEN /hpf (None Seen); Urine Blood TRACE /uL (Negative); Urine Mucus FEW (None Seen); Urine Specific Gravity 1.025 (1.001-1.035); Urine WBC 1 /hpf (0 - 5)
[~2020-08-06] VITALS: Ht 167.6 cm; Wt 71.7 kg
[~2020-08-06] MED LIST changes: +BUPIVACAINE 0.25% INJ 50ML VIAL ONE; +HYDROmorphone HCL 2 MG/ML VL IV PRN; +HYDROmorphone HCL 2 MG/ML VL ONE; +MIDAZOLAM HCL 1MG/1ML-2 ML VIAL ONE; +ONDANSETRON HCL 4 MG/2 ML VIAL IV PRN; +PHENYLEPHRINE HCL 10 MG/ML VL ONE; +SODIUM CHLORIDE LOCK 10 ML ONE; +SUCCINYLCHOLINE CHLORIDE 20 MG/ML 10ML VIAL IV ONE; +ceFAZolin 1GM/50ML 100 ML IV ONE; +fentaNYL CITRATE 100 MCG/2 ML VL ONE
[2020-08-06 08:55] VITALS: BP 155/89
== END | disposition home or self-care (01) ==
LOC: SUR 08-05 06:18
PROVIDERS: ATTEND Orthopaedic Surgery Adult Reconstructive Orthopaedic Surgery
DX: M25.531 Pain in right wrist (principal); M65.841 Other synovitis and tenosynovitis, right hand; I10 Essential (primary) hypertension; N80.8 Other endometriosis; E78.00 Pure hypercholesterolemia, unspecified; Z90.710 Acquired absence of both cervix and uterus; Z98.890 Other specified postprocedural states; Z79.899 Other long term (current) drug therapy; Z88.6 Allergy status to analgesic agent; Z88.8 Allergy status to other drugs, medicaments and biological substances; Z90.721 Acquired absence of ovaries, unilateral; F41.9 Anxiety disorder, unspecified
CPT/HCPCS: 20680; 25118; 36415; 73100; 76000; 80053; 81001; 85025; 85610; 85730; 88300; J0330; J0690; J1170; J2250; J2370; J3010; J3490; U0003

== ENCOUNTER 2020-11-28 11:36 | Emergency (ER) | payer BC ==
[~2020-11-28] VITALS: Ht 167.6 cm; Wt 70.3 kg
[~2020-11-28 11:36] MED LIST changes: -BUPIVACAINE 0.25% INJ 50ML VIAL ONE; -HYDROmorphone HCL 2 MG/ML VL IV PRN; -HYDROmorphone HCL 2 MG/ML VL ONE; -MIDAZOLAM HCL 1MG/1ML-2 ML VIAL ONE; -ONDANSETRON HCL 4 MG/2 ML VIAL IV PRN; -PHENYLEPHRINE HCL 10 MG/ML VL ONE; -SODIUM CHLORIDE LOCK 10 ML ONE; -SUCCINYLCHOLINE CHLORIDE 20 MG/ML 10ML VIAL IV ONE; -ceFAZolin 1GM/50ML 100 ML IV ONE; -fentaNYL CITRATE 100 MCG/2 ML VL ONE
[2020-11-28 11:56] VITALS: BP 104/78
== END 2020-11-28 12:31 | disposition home or self-care (01) ==
LOC: ER 11:36
DX: S93.601A Unspecified sprain of right foot, initial encounter (principal); E78.5 Hyperlipidemia, unspecified; I10 Essential (primary) hypertension; Z90.710 Acquired absence of both cervix and uterus; Z88.8 Allergy status to other drugs, medicaments and biological substances; W22.8XXA Striking against or struck by other objects, initial encounter; Y93.89 Activity, other specified; Y92.89 Other specified places as the place of occurrence of the external cause; Y99.8 Other external cause status
CPT/HCPCS: 73630

== ENCOUNTER 2021-04-23 07:22 | Emergency (ER) | payer BC ==
[~2021-04-23] VITALS: Ht 167.6 cm; Wt 68.9 kg
[2021-04-23 10:15] VITALS: BP 153/98
== END 2021-04-23 11:40 | disposition home or self-care (01) ==
LOC: EEVIPCON 07:22 → ER 07:22
DX: S86.911A Strain of unspecified muscle(s) and tendon(s) at lower leg level, right leg, initial encounter (principal); J06.9 Acute upper respiratory infection, unspecified; I10 Essential (primary) hypertension; E78.5 Hyperlipidemia, unspecified; Z20.822 Contact with and (suspected) exposure to COVID-19; Z90.710 Acquired absence of both cervix and uterus; X58.XXXA Exposure to other specified factors, initial encounter; Y93.89 Activity, other specified; Y92.89 Other specified places as the place of occurrence of the external cause; Y99.8 Other external cause status
CPT/HCPCS: 36415; 71045; 87426; 93971

== ENCOUNTER 2021-04-26 07:53 | Emergency (ER) | payer BC ==
[~2021-04-26] VITALS: Ht 152.4 cm; Wt 69.4 kg
[2021-04-26 07:53] VITALS: BP 121/81
== END 2021-04-26 13:56 | disposition home or self-care (01) ==
LOC: EEVIPCON 07:53 → ER 07:53
DX: S83.91XA Sprain of unspecified site of right knee, initial encounter (principal); M25.361 Other instability, right knee; I10 Essential (primary) hypertension; E78.5 Hyperlipidemia, unspecified; Z90.710 Acquired absence of both cervix and uterus; Z88.8 Allergy status to other drugs, medicaments and biological substances; X58.XXXA Exposure to other specified factors, initial encounter; Y93.89 Activity, other specified; Y92.89 Other specified places as the place of occurrence of the external cause; Y99.8 Other external cause status
CPT/HCPCS: 73700

== ENCOUNTER → 2021-05-04 | Outpatient (CLI) | payer BC ==
[2021-05-04 10:07] LABS: Potassium 3.9 mmol/L (3.5-5.1)
[2021-05-04 10:16] LABS: Albumin 3.8 g/dL (3.4-5.0); BUN/Creatinine Ratio 15.8; Bilirubin, Total 0.4 mg/dL (0.2-1.0); Calcium 8.6 mg/dL (8.5-10.1); Magnesium 2.4 mg/dL (1.6-2.6)
== END | disposition home or self-care (01) ==
LOC: LAB 07:52
PROVIDERS: ATTEND Internal Medicine
DX: Z12.11 Encounter for screening for malignant neoplasm of colon (principal); Z00.00 Encounter for general adult medical examination without abnormal findings; I10 Essential (primary) hypertension; E78.5 Hyperlipidemia, unspecified; E55.9 Vitamin D deficiency, unspecified
CPT/HCPCS: 36415; 80053; 80061; 82306; 83735; 84439; 84443

== ENCOUNTER → 2021-05-11 | Outpatient (CLI) | payer BC | END | disposition home or self-care (01) | LOC: LAB 13:04 | PROVIDERS: ATTEND Internal Medicine | DX: Z12.11 Encounter for screening for malignant neoplasm of colon (principal); Z00.00 Encounter for general adult medical examination without abnormal findings; E78.5 Hyperlipidemia, unspecified; I10 Essential (primary) hypertension | CPT/HCPCS: 82274 ==

== ENCOUNTER 2021-06-09 07:41 | Emergency (ER) | payer BC ==
[~2021-06-09] VITALS: Ht 167.6 cm; Wt 69.9 kg
[2021-06-09] MEDS ORDERED: KETOROLAC TROMETH 60MG/2ML VIAL IM ONE (08:15)
[2021-06-09 09:02] VITALS: BP 120/79
[2021-06-09] MEDS ORDERED: METH500T22 PO (09:03)
== END 2021-06-09 09:54 | disposition home or self-care (01) ==
LOC: EEVIPCON 07:41 → ER 07:41
DX: S16.1XXA Strain of muscle, fascia and tendon at neck level, initial encounter (principal); M48.02 Spinal stenosis, cervical region; M47.812 Spondylosis without myelopathy or radiculopathy, cervical region; E78.5 Hyperlipidemia, unspecified; I10 Essential (primary) hypertension; Z90.710 Acquired absence of both cervix and uterus; Z88.6 Allergy status to analgesic agent; Z88.8 Allergy status to other drugs, medicaments and biological substances; X58.XXXA Exposure to other specified factors, initial encounter; Y93.89 Activity, other specified; Y92.89 Other specified places as the place of occurrence of the external cause; Y99.8 Other external cause status
CPT/HCPCS: 71045; 72125; 96372; 99284; J1885